=== PATIENT | male | born 2000 | race Caucasian/White ===

== ENCOUNTER 2019-06-12 10:45 | Emergency (ER) | payer OTHER ==
[~2019-06-12] VITALS: Ht 175.3 cm; Wt 89.5 kg
[2019-06-12 11:30] VITALS: BP 150/95
== END 2019-06-12 11:47 | disposition home or self-care (01) ==
LOC: M ED 10:45
DX: T18.128A Food in esophagus causing other injury, initial encounter (principal); R09.89 Other specified symptoms and signs involving the circulatory and respiratory systems
CPT/HCPCS: 70360; 99284; G0463

== ENCOUNTER → 2019-06-12 | Outpatient (CLI) | payer OTHER ==
--- NOTE | 2019-06-12 10:20 | REP ---
SOFT TISSUES NECK: AP and lateral views of the soft tissues of the neck are performed. The adenoids are not enlarged. There is no prevertebral soft tissue swelling. The airway is widely patent. The epiglottis is normal. No radiopaque foreign body is seen along the course of the airway. The visualized osseous structures are unremarkable. Electronically Signed by Shayan Mcconnell MD 06/12/2019 05:35 P
== END ==
LOC: M LRY 09:50
PROVIDERS: ATTEND Nurse Practitioner Family
DX: R09.89 Other specified symptoms and signs involving the circulatory and respiratory systems (principal)

== ENCOUNTER 2019-08-28 12:46 | Day surgery (SDC) | payer OTHER ==
[~2019-08-28] VITALS: Ht 175.3 cm; Wt 93.9 kg
[~2019-08-28 12:46] MED LIST: NS 1,000 ML IV ONE; OMEP40CA97 PO
[2019-08-28] MEDS ORDERED: PROPOFOL 200 MG/20 ML VIAL As Ordered ONE (15:01)
[2019-08-28] MEDS ORDERED: LIDOCAINE 2% INJ 100 MG/5 ML SDV (FOR ANES.) As Ordered ONE (15:01)
--- NOTE | 2019-08-28 15:33 | ROOR ---
Patient Name: Skip Dsouza Procedure Date: 08/28/2019 3:00 PM Date of : 2000 Age: 18 Room: [facility] Gender: Male Note Status: Finalized Procedure: Upper GI endoscopy Indications: Dysphagia, Hematemesis Providers: Hans Leon MD Referring MD: GRABIEL ROSAS MD Requesting Provider: Medicines: Monitored Anesthesia Care Complications: No immediate complications. Procedure: Pre-Anesthesia Assessment: - Prior to the procedure, a History and Physical was performed, and patient medications and allergies were reviewed. The patient is competent. The risks and benefits of the procedure and the sedation options and risks were discussed with the patient. All questions were answered and informed consent was obtained. Patient identification and proposed procedure were verified by the physician, the nurse and the anesthesiologist in the procedure room. Mental Status Examination: alert and oriented. Airway Examination: normal oropharyngeal airway and neck mobility. Respiratory Examination: clear to auscultation. CV Examination: normal. Prophylactic Antibiotics: The patient does not require prophylactic antibiotics. Prior Anticoagulants: The patient has taken no previous anticoagulant or antiplatelet agents. ASA Grade Assessment: I - A normal, healthy patient. After reviewing the risks and benefits, the patient was deemed in satisfactory condition to undergo the procedure. The anesthesia plan was to use monitored anesthesia care (MAC). Immediately prior to administration of medications, the patient was re-assessed for adequacy to receive sedatives. The heart rate, respiratory rate, oxygen saturations, blood pressure, adequacy of pulmonary ventilation, and response to care were monitored throughout the procedure. The physical status of the patient was re-assessed after the procedure. The Endoscope was introduced through the mouth, and advanced to the second part of duodenum. The upper GI endoscopy was accomplished without difficulty. The patient tolerated the procedure well. Findings: Mucosal changes including feline appearance, longitudinal furrows and white plaques were found in the middle third of the esophagus and in the lower third of the esophagus. Biopsies were obtained from the proximal and distal esophagus with cold forceps for histology of suspected eosinophilic esophagitis. Verification of patient identification for the specimen was done by the physician and nurse using the patient's name, date and medical record number. Estimated blood loss was minimal. LA Grade A (one or more mucosal breaks less than 5 mm, not extending between tops of 2 mucosal folds) esophagitis with no bleeding was found in the distal esophagus. Scattered mild inflammation characterized by erythema, friability and granularity was found in the gastric body and in the gastric antrum. Biopsies were taken with a cold forceps for Helicobacter pylori testing. The duodenal bulb and second portion of the duodenum were normal. Impression: - Esophageal mucosal changes suspicious for eosinophilic esophagitis. Biopsied. - LA Grade A reflux esophagitis. - Gastritis. Biopsied. - Normal duodenal bulb and second portion of the duodenum. Recommendation: - Patient has a contact number available for emergencies. The signs and symptoms of potential delayed complications were discussed with the patient. Return to normal activities tomorrow. Written discharge instructions were provided to the patient. - Resume previous diet. - Avoid the food allergens. Follow Six Food Elimination Diet ( Avoid -- milk, soy, eggs, wheat, peanuts/tree nuts, and seafood), until allergy testing is done. - Await pathology results. - Follow an antireflux regimen. - Telephone GI clinic for pathology results in 2 weeks. - Return to primary care physician. Hans Leon MD Hans Leon MD 08/28/2019 3:33:10 PM Electronically signed by Hans eLon MD Number of Addenda: 0 Note Initiated On: 08/28/2019 3:00 PM Estimated Blood Loss: Estimated blood loss was minimal.
[2019-08-28 15:50] VITALS: BP 117/68
== END 2019-08-28 16:01 | disposition home or self-care (01) ==
LOC: M OPP 12:46
PROVIDERS: ATTEND Internal Medicine Gastroenterology
DX: K29.50 Unspecified chronic gastritis without bleeding (principal); K21.0 Gastro-esophageal reflux disease with esophagitis; K92.0 Hematemesis; Z79.899 Other long term (current) drug therapy

== ENCOUNTER → 2020-12-13 | Outpatient (CLI) | payer OTHER ==
[~2020-12-13] MED LIST changes: -NS 1,000 ML IV ONE
--- NOTE | 2020-12-13 13:13 | REP ---
INDICATION: MIRELES PAIN. COMPARISON: None. TECHNIQUE: 22.0 mCi of technetium 99 M MDP is injected and standard 3 phase imaging of the lower extremities is acquired. FINDINGS: Anterior and posterior flow images are normal. Blood pool images show no area of regional increased or asymmetric soft tissue uptake. Delayed scan images demonstrate normal lower extremity bone and soft tissue distribution of tracer. There is no scintigraphic evidence to suggest stress periostitis or stress fracture. IMPRESSION: Negative three-phase bone scan of the lower extremities. <Electronically signed by Jared Campos > 12/13/20 [id number]
== END ==
LOC: M RAD 07:21
PROVIDERS: ATTEND Physician Assistant
DX: M79.661 Pain in right lower leg (principal); M79.662 Pain in left lower leg
CPT/HCPCS: 78315; A9503